=== PATIENT | male | born 1955 | race Caucasian/White ===

== ENCOUNTER 2024-06-26 10:40 | Emergency (ER) | payer MEDICARE, BC ==
[2024-06-26 11:00] VITALS: BP 140/72; TEMP 98
--- NOTE | 2024-06-26 11:40 | ERPHSYRPT ---
- History of Present Illness Time Seen by Provider: 06/26/24 11:30 Source: patient Exam Limitations: no limitations Patient Subjective Stated Complaint: pt here for sudden onset of right sided abd pain and right flank pain today with some nausea Triage Nursing Assessment: pt alert, walked in, resp easy, tremors to arms, abd soft, moves all ext well, no edema noted Timing/Duration: today Severity: mild Allergies/Adverse Reactions: No Known Drug Allergies Allergy (Verified 06/26/24 10:53) Hx Tetanus, Diphtheria Vaccination/Date Given: Yes Hx Influenza Vaccination/Date Given: No Hx Pneumococcal Vaccination/Date Given: No Immunizations Up to Date: Yes Travel Risk - International Travel Have you traveled outside of the country in past 3 weeks: No - Emerging Infectious Disease Are you exhibiting symptoms associated with any current EIDs: Yes Symptoms: Abdominal Pain - Past Medical History Pertinent Past Medical History: Yes Cardiac History: High Cholesterol Male Reproductive Disorders: Prostate Problems, Other Other Medical History: parkinsons - Past Surgical History Past Surgical History: Yes Male Surgical History: Prostate Surgery - Social History Smoking Status: Never smoker Exposure to second hand smoke: No Drug Use: none Patient Lives Alone: No - Social Determinants of Health Will the patient participate in the screening: Declined to provide - Nursing Vital Signs Nursing Vital Signs: Initial Vital Signs Temperature 98.0 F 06/26/24 10:55 Pulse Rate 73 06/26/24 10:55 Respiratory Rate 20 06/26/24 10:55 Blood Pressure 140/72 06/26/24 10:55 O2 Sat by Pulse Oximetry 99 06/26/24 10:55 Pain Scale Pain Intensity 0 - Physical Exam SpO2: 97 Ordered Tests: Active Orders 24 hr Category Date Time Status ABDOMEN AND PELVIS W CONTRAST [CT] Stat Exams 06/26/24 11:36 Completed AMYLASE Stat Lab 06/26/24 11:38 Completed CBC W DIFF Stat Lab 06/26/24 11:38 Completed CMP Stat Lab 06/26/24 11:38 Completed CULTURE,URINE Stat Lab 06/26/24 11:38 Received LIPASE Stat Lab 06/26/24 11:38 Completed UA W/RFX UR CULTURE Stat Lab 06/26/24 11:38 Completed Medication Summary Discontinued Medications Generic Name Dose Route Start Last Admin Trade Name Freq PRN Reason Stop Dose Admin Hydromorphone HCl 1 mg 06/26/24 11:36 06/26/24 11:53 Hydromorphone 1 Mg/1ml Inj IV 06/26/24 11:37 1 mg STAT ONE Administration Hydromorphone HCl Confirm 06/26/24 11:41 Hydromorphone 1 Mg/1ml Inj Administered 06/26/24 11:42 Dose 1 mg .ROUTE .STK-MED ONE Hydromorphone HCl 1 mg 06/26/24 14:07 06/26/24 14:17 Hydromorphone 1 Mg/1ml Inj IV 06/26/24 14:08 1 mg STAT ONE Administration Hydromorphone HCl Confirm 06/26/24 14:13 Hydromorphone 1 Mg/1ml Inj Administered 06/26/24 14:14 Dose 1 mg .ROUTE .STK-MED ONE Sodium Chloride 1,000 mls @ 999 mls/hr 06/26/24 11:36 06/26/24 13:42 Sodium Chloride 0.9% 1000 Ml IV 06/26/24 12:36 Infused .Q1H1M STA Infusion Sodium Chloride Confirm 06/26/24 11:42 Sodium Chloride 0.9% 1000 Ml Administered 06/26/24 11:43 Dose 1,000 mls @ ud .ROUTE .STK-MED ONE Ceftriaxone Sodium 1 gm in 100 mls @ 200 mls/hr 06/26/24 13:56 06/26/24 14:18 Rocephin 1 Gm / 100 Ml Nacl IV 06/26/24 14:25 200 ml/hr STAT ONE 200 mls/hr Administration Ceftriaxone Sodium Confirm 06/26/24 14:13 Rocephin 1 Gm / 100 Ml Nacl Administered 06/26/24 14:14 Dose 1 gm in 100 mls @ ud IV .STK-MED ONE Ondansetron HCl 4 mg 06/26/24 11:36 06/26/24 11:50 Zofran 4 Mg/Udtablet Orally Disintegrating PO 06/26/24 11:37 4 mg STAT ONE Administration Ondansetron HCl Confirm 06/26/24 11:41 Ondansetron Hcl 4 Mg/2 Ml Vial Administered 06/26/24 11:42 Dose 4 mg .ROUTE .STK-MED ONE Ondansetron HCl Confirm 06/26/24 11:47 Zofran 4 Mg/Udtablet Orally Disintegrating Administered 06/26/24 11:48 Dose 4 mg .ROUTE .STK-MED ONE Ondansetron HCl Confirm 06/26/24 11:52 Zofran 4 Mg/Udtablet Orally Disintegrating Administered 06/26/24 11:53 Dose 4 mg .ROUTE .STK-MED ONE Ondansetron HCl 4 mg 06/26/24 14:07 06/26/24 14:15 Ondansetron Hcl 4 Mg/2 Ml Vial IV 06/26/24 14:08 4 mg STAT ONE Administration Ondansetron HCl Confirm 06/26/24 14:13 Ondansetron Hcl 4 Mg/2 Ml Vial Administered 06/26/24 14:14 Dose 4 mg .ROUTE .STK-MED ONE Lab/Rad Data: Laboratory Result Diagrams 06/26/24 11:38 06/26/24 11:38 Laboratory Results 06/26/24 06/26/24 06/26/24 Range/Units 11:38 11:38 11:38 WBC 5.9 (4.23-9.07) x10^3/uL RBC 4.87 (4.63-6.08) x10^6/uL Hgb 14.4 (13.7-17.5) g/dL Hct 43.5 (40.1-51.0) % MCV 89.3 (79.0-92.2) fL MCH 29.6 (25.7-32.2) pg MCHC 33.1 (32.3-36.5) g/dL RDW 13.2 (11.6-14.4) % Plt Count 147 L (163-337) x10^3/uL MPV 10.0 (9.4-12.4) fL Gran % 56.8 (34.0-67.9) % Immature Gran % (Auto) 0.2 (0.001-0.429) % Nucleat RBC Rel Count 0.0 (0.00-0.2) % Eos # (Auto) 0.18 (0.04-0.54) x10^3/uL Immature Gran # (Auto) 0.01 (0.001-0.031) x10^3u/L Absolute Lymphs (auto) 1.89 (1.32-3.57) x10^3/uL Absolute Monos (auto) 0.44 (0.30-0.82) x10^3/uL Absolute Nucleated RBC 0.00 (0.00-0.012) x10^3u/L Lymphocytes % 31.9 (21.8-53.1) % Monocytes % 7.4 (5.3-12.2) % Eosinophils % 3.0 (0.8-7.0) % Basophils % 0.7 (0.2-1.2) % Absolute Granulocytes 3.36 (1.78-5.38) x10^3/uL Basophils # 0.04 (0.01-0.08) x10^3/uL Sodium 142 (135-145) mmol/L Potassium 4.6 (3.5-5.1) mmol/L Chloride 105 (98-107) mmol/L Carbon Dioxide 29 (22-30) mmol/L Anion Gap 12.4 (5-15) MEQ/L BUN 22 H (9-20) mg/dL Creatinine 1.27 H (0.66-1.25) mg/dL Estimated GFR 61.2 ML/MIN Glucose 105 (74-106) mg/dL Calcium 9.6 (8.4-10.2) mg/dL Total Bilirubin 0.80 (0.2-1.3) mg/dL AST 23 (17-59) U/L ALT 16 (0-50) U/L Alkaline Phosphatase 86 (38-126) U/L Serum Total Protein 7.5 (6.3-8.2) g/dL Albumin 4.2 (3.5-5.0) g/dL Amylase 114 H (30-110) U/L Lipase 236 (23-300) U/L Urine Color Yellow (Yellow) Urine Appearance Clear (Clear) Urine pH 6.5 (4.6-8.0) Ur Specific [place] 1.025 (1.005-1.030) Urine Protein Trace A (Negative) Urine Glucose (UA) Negative (Negative) mg/dL Urine Ketones Negative (Negative) Urine Blood Large A (Negative) Urine Nitrite Negative (Negative) Urine Bilirubin Negative (Negative) Urine Urobilinogen 1.0 A (0.2) mg/dL Ur Leukocyte Esterase Negative (Negative) U Hyaline Cast (Auto) NONE SEEN (0-2) /LPF Urine Microscopic RBC >100 A (0-5) /HPF Urine Microscopic WBC 0-2 (0-5) /HPF Ur Epithelial Cells None Seen (None Seen) /HPF Urine Bacteria None Seen (None Seen) /HPF Urine Culture Reflexed YES (NO) - Progress Progress Note: and prednisone patient was seen and evaluated for abdominal pain labs were obtained. ct abdomen and pelvis was obtained this revealed Impression: 1. Right posterior lateral urinary bladder wall thickening with calcification adjacent to UVJ concerning for bladder mass such as transitional cell carcinoma. Finding produces right-sided obstructive uropathy. Direct cystoscopy recommended. 2. Incidental tiny gallstones/gravel better evaluated with sonogram if clinically warranted. 3. Incidental bilateral renal cysts, arteriosclerotic disease, chronic bony findings, and fatty right inguinal hernia. patient was informed of the need to follow-up with urology, We will attempt to make an appointment. He was given 1 dose of Rocephin here in the department he will be discharged home with antibiotics and was informed of the need to return to the ERif he were to get worse 06/26/24 14:33 Medical Desision Making - Discussion of managment Reviewed:: Need for additional workup Agreed on:: need for follow-up - Departure Clinical Impression: Acute abdominal pain Condition: Stable Critical Care Time: No Referrals: ALEXIS JORDAN [CONSULTING PHYSICIAN] - Follow up/PCP as directed Prescriptions: Sulfamethoxazole/Trimethoprim [Bactrim Ds Tablet] 1 each PO BID 8 Days #16 tablet
[2024-06-26 11:41] LABS: Absolute Neutrophil Ct (ANC) 3.36 x10^3/uL (1.78-5.38); BASOPHIL % 0.7 % (0.2-1.2); Basophil (Absolute #) 0.04 x10^3/uL (0.01-0.08); Eosinophil (Absolute #) 0.18 x10^3/uL (0.04-0.54); Hematocrit 43.5 % (40.1-51.0); Hemoglobin 14.4 g/dL (13.7-17.5); IMMATURE GRAN # 0.01 x10^3u/L (0.001-0.031); IMMATURE GRAN % 0.2 % (0.001-0.429); Lymphocyte (Absolute #) 1.89 x10^3/uL (1.32-3.57); Lymphocytes % 31.9 % (21.8-53.1); Mean Cell Volume 89.3 fL (79.0-92.2); Mean Corpuscular Hemoglobin 29.6 pg (25.7-32.2); Mean Corpuscular Hgb Concent. 33.1 g/dL (32.3-36.5); Monocyte (Absolute #) 0.44 x10^3/uL (0.30-0.82); Monocytes % 7.4 % (5.3-12.2); Neutrophil % 56.8 % (34.0-67.9); Platelet Count 147 x10^3/uL (163-337); Red Blood Count 4.87 x10^6/uL (4.63-6.08); Red Cell Distribution Width 13.2 % (11.6-14.4); White Blood Count 5.9 x10^3/uL (4.23-9.07)
[2024-06-26] MEDS ORDERED: Zofran 4 MG/2 ML VIAL ONE ×2 (11:41→14:13)
[2024-06-26] MEDS ORDERED: Hydromorphone 1 mg/ml Injection ONE ×2 (11:41→14:13)
[2024-06-26] MEDS ORDERED: Sodium Chloride 0.9% 1000 ML 1,000 ML ONE (11:42)
[2024-06-26 11:47] LABS: Appearance Clear (Clear); Bacteria None Seen /HPF (None Seen); Bilirubin Negative (Negative); Blood Large (Negative); Epithelial Cells None Seen /HPF (None Seen); Glucose, Urine Negative (Negative); Hyaline Casts NONE SEEN /LPF (0-2); Ketones Negative (Negative); Leukocyte Esterase Negative (Negative); Nitrite Negative (Negative); Ph 6.5 (4.6-8.0); Protein,Urine Dip Trace (Negative); RBC >100 /HPF (0-5); Specific Gravity 1.025 (1.005-1.030); WBC 0-2 /HPF (0-5)
[2024-06-26] MEDS ORDERED: ZOFRAN ODT 4 MG ONE ×2 (11:47→11:52)
[2024-06-26 11:49] VITALS: RESP 18
[2024-06-26] MEDS: Sodium Chloride 0.9% 1000 ML 1,000 ML IV STA (11:49)
[2024-06-26] MEDS: ZOFRAN ODT 4 MG PO ONE (11:50)
[2024-06-26 11:51] LABS: ALBUMIN 4.2 g/dL (3.5-5.0); ANION GAP 12.4 MEQ/L (5-15); BILIRUBIN,TOTAL 0.8 mg/dL (0.2-1.3); Calcium 9.6 mg/dL (8.4-10.2); Creatinine 1 1.27 mg/dL (0.66-1.25); EST GLOMERULAR FILTRATION RATE 61.2 ML/MIN; Potassium 4.6 mmol/L (3.5-5.1); Total Protein 7.5 g/dL (6.3-8.2)
[2024-06-26] MEDS: Hydromorphone 1 mg/ml Injection IV ONE ×2 (11:53→14:17)
[2024-06-26 11:56] LABS: ADD URINE CULTURE? YES (NO)
--- NOTE | 2024-06-26 12:57 | XRAY ---
Indication: Abdominal pain. History prostate cancer. Multiple contiguous axial images obtained through the abdomen and pelvis using 80 cc Isovue 370 contrast. Comparison: None Lung bases clear with incidental tiny right lower lobe calcified granuloma. Heart not enlarged. Noncontrasted stomach and bowel loops appear nonobstructed with normal appendix. Gallbladder demonstrates a few tiny gallstones/gravel in the dependent portion. Posterior urinary bladder demonstrates 4 mm calcification adjacent to right UVJ. On delayed imaging, there is associated right posterior lateral urinary bladder wall thickening measuring at least 1 x 2 cm concerning for bladder mass. Right ureter is prominent up to 6 mm along with mild hydronephrosis favoring partial obstructive uropathy. Both kidneys enhance with normal left renal excretion and delayed right renal excretion. Incidental 9.2 cm right mid renal and 1.6 cm left mid renal cysts. Remaining liver, gallbladder, pancreas, spleen, adrenal glands, kidneys, and bladder are unremarkable. Minimal scattered aortoiliac calcifications. No AAA or pathologic retroperitoneal lymphadenopathy. Osseous structures intact with mild generative changes throughout thoracolumbar spine and minimal dextroscoliosis centered at L2. No suspicious bony lesions. Incidental small fatty right inguinal hernia. Impression: 1. Right posterior lateral urinary bladder wall thickening with calcification adjacent to UVJ concerning for bladder mass such as transitional cell carcinoma. Finding produces right-sided obstructive uropathy. Direct cystoscopy recommended. 2. Incidental tiny gallstones/gravel better evaluated with sonogram if clinically warranted. 3. Incidental bilateral renal cysts, arteriosclerotic disease, chronic bony findings, and fatty right inguinal hernia.
[2024-06-26] MEDS ORDERED: ROCEPHIN 1 GM / 100 ML NaCl 1 GM/100 ML IVPB IV ONE (14:13)
[2024-06-26] MEDS: Zofran 4 MG/2 ML VIAL IV ONE (14:15)
[2024-06-26] MEDS: ROCEPHIN 1 GM / 100 ML NaCl 1 GM/100 ML IVPB IV ONE (14:18)
[2024-06-26 14:20] VITALS: PULSE 92
[2024-06-26 14:37] VITALS: O2SAT 97
== END 2024-06-26 15:03 | disposition home or self-care (01) ==
LOC: ED 10:40
DX: R10.9 Unspecified abdominal pain (principal); E78.5 Hyperlipidemia, unspecified
CPT/HCPCS: 36000; 36415; 74177; 80053; 81001; 82150; 83690; 85025; 87086; 96360; 96374; 96376; 99284; J0696; J1170; J2405; Q0162